=== PATIENT | female | born 1930 | race Caucasian/White ===

== ENCOUNTER 2017-11-04 13:59 | Emergency (ER) | payer OTHER, BC ==
[~2017-11-04] VITALS: Ht 160 cm; Wt 80.7 kg
[~2017-11-04 13:59] MED LIST: ACCU10 PO; ADV200 PO; BEN50 PO; ECOTRIN PO; HYDRO PAR25 MG PO; NOR5 PO; TRICOR48 MG PO
[2017-11-04 17:08] VITALS: BP 129/70
== END 2017-11-04 17:08 | disposition home or self-care (01) ==
LOC: ED 13:59
DX: M54.41 Lumbago with sciatica, right side (principal); I10 Essential (primary) hypertension; E03.9 Hypothyroidism, unspecified; E78.5 Hyperlipidemia, unspecified
CPT/HCPCS: J1885; J3010; Q0162

== ENCOUNTER 2018-03-31 19:18 | Emergency (ER) | payer OTHER, BC ==
[~2018-03-31] VITALS: Ht 160 cm; Wt 78.9 kg
[2018-03-31 19:23] VITALS: Ht 160 cm; Wt 78.9 kg
[2018-03-31 20:08] LABS: BASOPHIL % 0.9 % (0-2); PLATELET COUNT 319 x10^3mcL (130-400); RED CELL DISTRIBUTION WIDTH 13.3 % (11.5-14.5)
[2018-03-31 20:18] LABS: CALCIUM 9.1 mg/dL (8.5-10.1); CARBON DIOXIDE 28.5 mmol/L (21-32); CHLORIDE SERUM 101 mmol/L (98-107); GLUCOSE SERUM 107 mg/dL (74-106); POTASSIUM SERUM 3.1 mmol/L (3.5-5.1); SODIUM SERUM 137 mmol/L (136-145)
[2018-03-31 20:19] LABS: ALBUMIN 3.5 g/dL (3.4-5.0); ALKALINE PHOSPHATASE 71 U/L (46-116); ALT/SGPT 10 U/L (14-59); AST/SGOT 17 U/L (15-37); BILIRUBIN TOTAL 0.5 mg/dL (0.20-1.00); TOTAL PROTEIN, SERUM 6.9 g/dL (6.4-8.2)
[2018-03-31 21:37] LABS: UA SPECIFIC GRAVITY <=1.005 (1.005-1.035); microscopic required? YES; urine erythrocyte NEGATIVE (NEGATIVE)
[2018-03-31 22:07] VITALS: BP 170/72
== END 2018-03-31 22:07 | disposition home or self-care (01) ==
LOC: ED 19:18
PROVIDERS: Emergency Medicine
DX: N39.0 Urinary tract infection, site not specified (principal); R53.1 Weakness; R42 Dizziness and giddiness; I10 Essential (primary) hypertension; E78.5 Hyperlipidemia, unspecified
CPT/HCPCS: 83880; J7030; Q0092

== ENCOUNTER → 2018-04-11 | Outpatient (CLI) | payer OTHER, BC | END | disposition home or self-care (01) | LOC: RD 10:37 | DX: M54.5 Low back pain (principal) ==